=== PATIENT | male | born 2000 | race Two or more races ===

== ENCOUNTER 2024-01-04 10:38 | Emergency (ER) | payer OTHER ==
[~2024-01-04] VITALS: Ht 170.2 cm; Wt 61.2 kg
== END 2024-01-04 14:37 | disposition home or self-care (01) ==
LOC: ER 10:40
DX: S60.454A Superficial foreign body of right ring finger, initial encounter (principal)

== ENCOUNTER 2024-05-16 22:12 | Emergency (ER) | payer OTHER ==
[~2024-05-16] VITALS: Ht 170.2 cm; Wt 59.0 kg
[2024-05-16] MEDS ORDERED: SINGULAIR10 MG PO (23:53)
[2024-05-16] MEDS ORDERED: ZYRTEC10 MG PO (23:53)
== END 2024-05-17 00:55 | disposition home or self-care (01) ==
LOC: ER 22:15
DX: J30.9 Allergic rhinitis, unspecified (principal); R09.82 Postnasal drip; R05.9 Cough, unspecified